=== PATIENT | male | born 2000 | race Caucasian/White ===

== ENCOUNTER 2020-08-25 12:19 | Emergency (ER) | payer SELFPAY ==
--- NOTE | 2020-08-25 12:49 | ER Document Report ---
ED Medical Screen (RME) - General Chief Complaint: Abdominal Pain Stated Complaint: ABDOMINAL PAIN Time Seen by Provider: 08/25/20 12:44 Mode of Arrival: Ambulatory Information source: Patient Notes: HPI; 20-year-old male with no previous medical problems presents to the emergency room complaining of urinary frequency and voiding in small amounts for 2 days. Today he woke up with left-sided abdominal pain that is sharp and stabbing. Denies any nausea, vomiting, no fevers. No history of kidney stones. No medications for symptoms. Denies any penile discharge. PE: Alert and oriented x3. Lungs: Clear to auscultation without rales, rhonchi, wheezes. Heart: Regular rate rhythm without murmurs, rubs, gallops. No CVA tenderness noted bilaterally. Unable to do full abdominal exam in triage. I have greeted and performed a rapid initial assessment of this patient. A comprehensive ED assessment and evaluation of the patient, analysis of test results and completion of the medical decision making process will be conducted by additional ED providers. I have specifically instructed the patient or family members with the patient to immediately return to any nursing staff should anything change in the patient's condition or with their chief complaint. TRAVEL OUTSIDE OF THE [place] IN LAST 30 DAYS: No - Related Data Allergies/Adverse Reactions: No Known Drug Allergies Allergy (Verified 08/25/20 12:45) Physical Exam - Vital signs Vitals: Temp Pulse Resp BP Pulse Ox 98.1 F 92 18 138/89 H 100 08/25/20 12:33 08/25/20 12:33 08/25/20 12:33 08/25/20 12:33 08/25/20 12:33 Course - Vital Signs Vital signs: Temp Pulse Resp BP Pulse Ox 98.1 F 92 18 138/89 H 100 08/25/20 12:33 08/25/20 12:33 08/25/20 12:33 08/25/20 12:33 08/25/20 12:33
[2020-08-25 13:05] LABS: ABSOLUTE EOSINOPHILS # (AUTO) 0.1 10^3/uL (0.0-0.6); ABSOLUTE LYMPHOCYTES (AUTO) 1.5 10^3/uL (0.5-4.7); ABSOLUTE MONOCYTES (AUTO) 0.5 10^3/uL (0.1-1.4); BASOPHILS % (AUTO) 0.3 % (0-2); EOSINOPHILS % (AUTO) 1.6 % (0-6); HEMATOCRIT 43.9 % (37.9-51.0); HEMOGLOBIN 14.5 g/dL (13.5-17.0); LYMPHOCYTES % (AUTO) 29.3 % (13-45); MEAN CORPUSCULAR VOLUME 79 fl (80-97); MONOCYTES % (AUTO) 9.7 % (3-13); PLATELET COUNT 167 10^3/uL (150-450); RED BLOOD COUNT 5.57 10^6/uL (4.35-5.55); RED CELL DISTRIBUTION WIDTH 15.3 % (11.5-14.0); SEGMENTED NEUTROPHILS % (AUTO) 59.1 % (42-78); TOTAL CELLS COUNTED % (AUTO) 100 %
[2020-08-25 13:08] LABS: APPEARANCE,URINE CLEAR; BILIRUBIN,URINE NEGATIVE (NEGATIVE); COLOR,URINE YELLOW; GLUCOSE, URINE NEGATIVE (NEGATIVE); KETONES,URINE NEGATIVE (NEGATIVE); LEUKOCYTE ESTERASE,URINE NEGATIVE (NEGATIVE); NITRITE,URINE NEGATIVE (NEGATIVE); PROTEIN,URINE 100 mg/dL (NEGATIVE); URINE SPECIFIC GRAVITY 1.025; UROBILINOGEN,URINE NEGATIVE mg/dL (<2.0)
[2020-08-25 13:25] LABS: ALBUMIN 4.6 g/dL (3.5-5.0); ALKALINE PHOSPHATASE 74 U/L (38-126); ASPARTATE AMINO TRANSFERASE 35 U/L (17-59); BILIRUBIN,TOTAL 0.5 mg/dL (0.2-1.3); BLOOD UREA NITROGEN 13 mg/dL (7-20); CALCIUM 10.4 mg/dL (8.4-10.2); CARBON DIOXIDE 32 mmol/L (22-30); GLUCOSE 93 mg/dL (75-110); POTASSIUM 4.4 mmol/L (3.6-5.0); TOTAL PROTEIN 7.8 g/dL (6.3-8.2)
[2020-08-25 13:31] LABS: ANION GAP 5 (5-19); CHLORIDE 104 mmol/L (98-107)
--- NOTE | 2020-08-25 13:33 | RADIOLOGY REPORT (SQ) ---
EXAM DESCRIPTION: CT ABD/PELVIS NO ORAL OR IV IMAGES COMPLETED DATE/TIME: 08/25/2020 1:06 pm REASON FOR STUDY: abdominal pain COMPARISON: None. TECHNIQUE: CT scan of the abdomen and pelvis performed without intravenous or oral contrast. Images reviewed with lung, soft tissue, and bone windows. Reconstructed coronal and sagittal MPR images revi ewed. All images stored on PACS. All CT scanners at this facility use dose modulation, iterative reconstruction, and/or weight based d osing when appropriate to reduce radiation dose to as low as reasonably achievable (ALARA). [facility]: Dose Right [facility]: CareDose [facility]: Dose Right [facility]: Teradose 4D [facility]: Smart [employer] RADIATION DOSE: CT Rad equipment meets quality standard of care and radiation dose reduction techniq ues were employed. CTDIvol: 4.8 mGy. DLP: 263 mGy-cm. LIMITATIONS: None. FINDINGS: LOWER CHEST: No acute abnormality. NON-CONTRASTED LIVER, SPLEEN, ADRENALS: Evaluation is limited by the absence of intravenous contrast. There is no evidence hepatic steatosis. The spleen is normal in size. There is no adrenal mass. PANCREAS: No acute gross abnormality of the pancreas. GALLBLADDER: No acute gross abnormality of the gallbladder. RIGHT KIDNEY AND URETER: Evaluation is limited by the absence of intravenous contrast. There is no h ydronephrosis, nephrolithiasis, hydroureter or ureterolithiasis. LEFT KIDNEY AND URETER: Evaluation is limited by the absence of intravenous contrast. There is no hy dronephrosis, nephrolithiasis, hydroureter or ureterolithiasis. AORTA AND RETROPERITONEUM: No aneurysm of the abdominal aorta. No retroperitoneal adenopathy, hemorr [place] or mass. BOWEL AND PERITONEAL CAVITY: No bowel obstruction, bowel wall thickening or pericolonic/ perienteric inflammation. No mesenteric adenopathy, free intraperitoneal fluid or mesenteric/ omental inflammati on. APPENDIX: Unable to identify the appendix. There is no periappendiceal inflammation. PELVIS, BLADDER, AND ABDOMINAL WALL:No abdominal wall mass or hernia. BONES: No acute abnormality. OTHER: No other findings. IMPRESSION: 1. No acute intra-abdominal abnormality. 2. Unable to identify the appendix. This no periappendiceal inflammation. COMMENT: Quality ID # [id number]: Final reports with documentation of one or more dose reduction techniques (e.g., Automated exposure control, adjustment of the mA and/or kV according to patient size, use of iterative reconstruction technique) TECHNICAL DOCUMENTATION: JOB ID: [id number] 2010 [facility] [employer]- All Rights Reserved Reading location - IP/workstation name: [email or web address]
--- NOTE | 2020-08-25 16:08 | ER Document Report ---
ED GI/ - General Chief Complaint: Urinary Frequency Stated Complaint: ABDOMINAL PAIN Time Seen by Provider: 08/25/20 12:44 Primary Care Provider: BRINA VILLASEÑOR MD [NO LOCAL MD] - Follow up as needed Mode of Arrival: Ambulatory Information source: Patient TRAVEL OUTSIDE OF THE [place] IN LAST 30 DAYS: No - HPI Notes: 08/25/20 16:51 20-year-old male presents to ED for evaluation of increased left lower abdominal pain as well as urgency and frequency. Reports that he is having trouble fully performing a stream. Reports that this has been going on for last 2 to 3 days. Patient reports he is not sexually active and does not have concern for STDs at this time. He denies any penile discharge. He denies any scrotal pain or discomfort. Denies any scrotal swelling. Reports he is not experiencing any rectal pain, diarrhea, fever, or chills. Denies nausea or vomiting. Patient reports no changes in his stool color or form. Reports he does not note any blood in his urine. He states that the pain does not radiate. He denies any chest pain or shortness of breath. Denies any sick contacts. Patient reports that not tried anything that has improved or worsened his symptoms. - Related Data Allergies/Adverse Reactions: No Known Drug Allergies Allergy (Verified 08/25/20 12:45) Past Medical History - General Information source: Patient - Social History Smoking Status: Never Smoker Family History: None Review of Systems - Review of Systems Notes: Constitutional: Negative for fever. HENT: Negative for sore throat. Eyes: Negative for visual changes. Cardiovascular: Negative for chest pain. Respiratory: Negative for shortness of breath. Gastrointestinal: Negative for abdominal pain, vomiting or diarrhea. Genitourinary: Positive for dysuria. Denies hematuria. Musculoskeletal: Negative for back pain. Skin: Negative for rash. Neurological: Negative for headaches, weakness or numbness. 10 point ROS negative except as marked above and in HPI. Physical Exam - Vital signs Vitals: Temp Pulse Resp BP Pulse Ox 98.1 F 92 18 138/89 H 100 08/25/20 12:33 08/25/20 12:33 08/25/20 12:33 08/25/20 12:33 08/25/20 12:33 Notes: PHYSICAL EXAMINATION: GENERAL: Well-appearing, well-nourished and in no acute distress. HEAD: Atraumatic, normocephalic. EYES: Pupils equal round and reactive to light, extraocular movements intact, sclera anicteric, conjunctiva are normal. NECK: Normal range of motion, supple without lymphadenopathy LUNGS: Breath sounds clear to auscultation bilaterally and equal. No wheezes rales or rhonchi. HEART: Regular rate and rhythm without murmurs ABDOMEN: Soft, minor tenderness with deep palpation to left lower abdomen, normoactive bowel sounds. No guarding, no rebound. No masses appreciated. NEUROLOGICAL: No focal neurological deficits. Moves all extremities spontaneously and on command. PSYCH: Normal mood, normal affect. SKIN: Warm, Dry, normal turgor, no rashes or lesions noted. Course - Re-evaluation Re-evalutation: 08/25/20 15:54 20-year-old male presents to ED for evaluation of left lower quadrant abdominal pain with increased dysuria. Patient reports that he is not sexually active 08/25/20 17:54 Patient was evaluated with labs which show no evidence of electrolyte abnormalities or elevated WBC count. Urinalysis does not show evidence of infection. Elevated protein is present. Patient advised of these findings. Tenderness to palpation is noted to the left lower abdomen. No flank pain. Not see evidence of acute abdominal pelvic pathology. Patient declined to be tested for STDs. Patient declined exam. He endorsed no scrotal pain. Culture is pending at this time. Patient is advised that I will start a course of doxycycline. Patient understands to follow-up with urology and return for any new or worsening symptoms. He understands this course of management and is agreeable with care plan. 08/25/20 19:37 - Vital Signs Vital signs: Temp Pulse Resp BP Pulse Ox 98.4 F 86 16 130/80 H 100 08/25/20 16:24 08/25/20 16:24 08/25/20 16:24 08/25/20 16:24 08/25/20 16:24 - Laboratory Result Diagrams: 08/25/20 12:56 08/25/20 12:56 Laboratory results interpreted by me: 08/25/20 08/25/20 08/25/20 12:56 12:56 12:56 RBC 5.57 H MCV 79 L MCH 26.0 L RDW 15.3 H Carbon Dioxide 32 H Calcium 10.4 H Urine Protein 100 H - Diagnostic Test Radiology reviewed: Image reviewed Radiology results interpreted by me: 08/25/20 16:54 Reviewed patient's imaging as well as report which were read by radiology and showed no acute findings within the abdominal pelvic region. Discharge - Discharge Clinical Impression: Dysuria Abdominal pain Qualifiers: Abdominal location: left lower quadrant Qualified Code(s): R10.32 - Left lower quadrant pain Condition: Stable Disposition: HOME, SELF-CARE Instructions: Abdominal Pain ([facility]) Additional Instructions: Please finish all medications and drink plenty of fluids. Prescriptions: Doxycycline Monohydrate 100 mg PO BID #20 capsule Ibuprofen [Motrin 800 mg Tablet] 800 mg PO Q8H PRN #30 tab PRN Reason: Phenazopyridine HCl [Pyridium 200 mg Tablet] 200 mg PO TID #15 tablet Forms: Return to Work Referrals: BRINA VILLASEÑOR MD [NO LOCAL MD] - Follow up as needed
[2020-08-25 16:26] VITALS: BP 130/80
== END 2020-08-25 16:29 | disposition home or self-care (01) ==
LOC: ER 12:19
DX: R10.32 Left lower quadrant pain (principal); R10.814 Left lower quadrant abdominal tenderness; R30.0 Dysuria
CPT/HCPCS: 36415; 74176; 80053; 81001; 85025; 99284